=== PATIENT | male | born 1995 | race Two or more races ===

== ENCOUNTER 2023-11-24 11:55 | Emergency (ER) | payer OTHER ==
[2023-11-24 12:06] VITALS: BP 140/81; PULSE 71; RESP 16; TEMP 98; BMI 30.9
[2023-11-24] MEDS ORDERED: diphenhydrAMINE HCL 25 MG CAPSULE (FP) PO ONE (12:31)
[2023-11-24] MEDS ORDERED: FAMOTIDINE 20 MG TABLET ONE (12:31)
[2023-11-24] MEDS: diphenhydrAMINE HCL 25 MG CAPSULE (FP) PO ONE (12:34)
[2023-11-24] MEDS: FAMOTIDINE 20 MG TABLET PO ONE (12:35)
== END 2023-11-24 12:42 | disposition home or self-care (01) ==
LOC: JERFT 11:55 → JER 11:55 → JERFT 12:42
DX: L20.9 Atopic dermatitis, unspecified (principal); R21 Rash and other nonspecific skin eruption; L29.9 Pruritus, unspecified; L50.0 Allergic urticaria
CPT/HCPCS: 99283-25